=== PATIENT | male | born 1980 | race Caucasian/White ===

== ENCOUNTER 2017-09-03 20:02 | Emergency (ER) | payer BC ==
[~2017-09-03] VITALS: Ht 188 cm; Wt 129.5 kg
[2017-09-03 21:10] VITALS: BP 129/87
== END 2017-09-03 21:10 | disposition home or self-care (01) ==
LOC: ED 20:02
DX: S61.211A Laceration without foreign body of left index finger without damage to nail, initial encounter (principal); W45.8XXA Other foreign body or object entering through skin, initial encounter; Y92.008 Other place in unspecified non-institutional (private) residence as the place of occurrence of the external cause; Z23 Encounter for immunization
CPT/HCPCS: 90715